=== PATIENT | female | born 1975 | race Caucasian/White ===

== ENCOUNTER 2016-08-10 15:00 | Emergency (ER) | payer BC ==
[~2016-08-10 15:00] MED LIST: BIRTH CONTROL PO; DENIES MEDICATIONS; DULERA 100 MCG/13 GM INH; NUVA RING V; PROAIR HFA INH
== END 2016-08-10 15:25 | disposition home or self-care (01) ==
LOC: ER 15:00
DX: L29.9 Pruritus, unspecified (principal); T36.0X5A Adverse effect of penicillins, initial encounter; J45.909 Unspecified asthma, uncomplicated; Z88.1 Allergy status to other antibiotic agents; Z91.018 Allergy to other foods; Z79.899 Other long term (current) drug therapy
CPT/HCPCS: 93005; 96374; 99283; J1200; J2930